=== PATIENT | male | born 1985 | race Caucasian/White ===

== ENCOUNTER 2018-09-21 21:04 | Emergency (ER) | payer BC ==
[~2018-09-21] VITALS: Ht 180.3 cm; Wt 96.2 kg
[2018-09-21 21:15] VITALS: BP 136/80
--- NOTE | 2018-09-21 21:18 | NUR ---
ARRIVAL PT ARRIVED AMBULATORY TO ER 3 WITH C/O LEFT FACIAL NUMBNESS AND HEADACHE. PT STATES THAT "ABOUT 4:30 TODAY WHEN I WAS BRUSHING MY TEETH I STARTED HAVING NUMBNESS FROM MY LEFT CHEEK UP TO MY LEFT EYE. THAT'S WHEN MY HEADACHE STARTED WELL. MY HEADACHE STARTS IN THE FRONT ON MY FOREHEAD AND GOES TO THE BACK OF MY HEAD." PT DOES NOT HAVE LIGHT SENSITIVITY, FACIAL DROOPING OR WEAKNESS. PT DENIES HAVING INJURED THE FACE/HEAD. PT STATES WAS DIAGNOSED WITH SINUS INFECTION A WEEK AGO MONDAY AND WAS ALSO TOLD HAD THE FLU BUT WAS NOT TESTED FOR IT. PT HAS BEEN ON AMOXICILLIN THE PAST WEEK FOR SINUS INFECTION. EDP NOTIFIED OF ARRIVAL. PT IN NO ACUTE DISTRESS.
--- NOTE | 2018-09-21 21:29 | ER.PDOC ---
General Chief Complaint: General Complaint Stated Complaint: L FACIAL NUMBNESS TRAVEL OUT OF US: No Time seen by MD: 21:28 Source: patient Exam Limitations: no limitations History of Present Illness Initial Comments Left facial numbness Timing/Duration: 4-6 hours Severity: moderate Associated Symptoms: denies symptoms Allergies: Coded Allergies: No Known Allergies (Unverified , 09/21/18) Past Medical History Medical History: GERD, high cholesterol, hypertension Surgical History: no surgical history Social History Smoking: cigarettes, less than 1 pack/day Alcohol Use: occassionally Drug Use: none Review of Systems Constitutional: no symptoms reported EENTM: no symptoms reported Respiratory: cough (for 1 week) Cardiovascular: no symptoms reported Gastrointestinal: no symptoms reported Psychiatric/Neurological: see HPI All Other Systems: Reviewed and Negative Physical Exam General Appearance: No Apparent Distress, WD/WN EENT: eyes nml inspection Neck: Non-Tender, Full Range of Motion, Supple, Normal Inspection Respiratory: chest non-tender, lungs clear, normal breath sounds, no respiratory distress CVS: reg rate & rhythm, no murmur, no gallop, pulses nml, nml capillary refill Gastrointestinal: Normal Bowel Sounds, No Organomegaly, No Pulsatile Mass, Non Tender Back: Normal Inspection Extremities: Normal Range of Motion 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, No Motor/Sensory Deficits, Alert, Normal Mood/Affect, Oriented x 3 Skin: Normal Color Results/Orders Results/Orders Laboratory Tests Test 09/21/18 21:34 White Blood Count 17.8 10^3/uL (4.5-11.0) Red Blood Count 4.75 10^6/uL (4.50-5.90) Hemoglobin 14.9 g/dL (13.9-16.3) Hematocrit 43.3 % (37.0-53.0) Mean Corpuscular Volume 91.2 fL (78-100) Mean Corpuscular Hemoglobin 31.4 pg (26-34) Mean Corpuscular Hemoglobin Concent 34.4 g/dL (33-37) Red Cell Distribution Width 12.7 % (11.5-14.5) Platelet Count 352 10^3/uL (150-400) Mean Platelet Volume 9.6 fL (7.8-11.0) Neutrophils (%) (Auto) 75.3 % (41.0-85.0) Lymphocytes (%) (Auto) 17.4 % (24.0-44.0) Monocytes (%) (Auto) 4.8 % (5.0-12.0) Neutrophils # (Auto) 13.4 10^3/uL (1.8-7.7) Lymphocytes # (Auto) 3.1 10^3/uL (1.0-4.8) Monocytes # (Auto) 0.9 10^3/uL (0.3-0.8) Absolute Immature Granulocyte (auto 0.06 10^3 u/L (0-2) Eosinophils % 2.0 % (0.0-5.0) Basophils % 0.2 % (0.0-0.2) Basophils # 0.0 10^3/uL (0.0-0.1) Eosinophil Count 0.4 10^3/uL (0.0-0.2) Sodium Level 136 mmol/L (132-145) Potassium Level 4.3 mmol/L (3.6-5.2) Chloride Level 98.0 mmol/L (96-109) Carbon Dioxide Level 26.5 mmol/L (20.0-32) Anion Gap 15.8 Blood Urea Nitrogen 20 mg/dL (7-18) Creatinine 1.28 mg/dL (0.59-1.40) Estimated GFR () 77.8 (>/=60) BUN/Creatinine Ratio 15.0 Glucose Level 117 mg/dL (70-110) Calcium Level 9.8 mg/dL (8.4-10.5) Total Bilirubin 0.4 mg/dL (0.2-1.0) Aspartate Amino Transf (AST/SGOT) 26 U/L (0-35) Alanine Aminotransferase (ALT/SGPT) 48 U/L (12-78) Alkaline Phosphatase 69 U/L (50-136) Total Protein 8.7 g/dL (6.4-8.2) Albumin 4.2 g/dL (3.4-5.0) Globulin 4.5 Percent Immature Gran (Cell Imm) 0.30 % (0.00-0.50) EKG/XRAY/CT/US CT Comments: Normal CT head Departure Time of Disposition: 22:05 Disposition: 01 HOME, SELF-CARE Impression: Primary Impression: Bronchitis Additional Impression: Numbness of face Condition: Stable Referrals: PCP,UNKNOWN (PCP) PRIMARY CARE PROVIDER Additional Instructions: Z pack Mucinex DM OTC as directed F/U with your PCP in 2-3 days Duration or Time Spent with Pa: 60 mins SAMIRA,RICKY Hart MD Sep 21, 2018 21:29
--- NOTE | 2018-09-21 21:30 | NUR ---
CT EVA, RAD IN PT ROOM TO ESCORT TO CT AT THIS TIME.
--- NOTE | 2018-09-21 21:30 | NUR ---
KAROLINE ALFONSO, KAROLINE IN PT ROOM FOR DRAWS AT THIS TIME.
[2018-09-21 21:37] LABS: BASOPHIL % 0.2 % (0.0-0.2); EOSINOPHIL # 0.4 10^3/uL (0.0-0.2); HEMOGLOBIN 14.9 g/dL (13.9-16.3); LYMPHOCYTES # 3.1 10^3/uL (1.0-4.8); LYMPHOCYTES % 17.4 % (24.0-44.0); MEAN CELL HGB 31.4 pg (26-34); MEAN CELL HGB CONCENTRATION 34.4 g/dL (33-37); MEAN CORP VOLUME 91.2 fL (78-100); MEAN PLATELET VOLUME 9.6 fL (7.8-11.0); MONOCYTES # 0.9 10^3/uL (0.3-0.8); MONOCYTES % 4.8 % (5.0-12.0); NEUTROPHIL # 13.4 10^3/uL (1.8-7.7); NEUTROPHILS % 75.3 % (41.0-85.0); RED CELL DISTRIBUTION WIDTH 12.7 % (11.5-14.5); WHITE BLOOD CELL 17.8 10^3/uL (4.5-11.0)
--- NOTE | 2018-09-21 21:38 | PCM.EKG ---
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
--- NOTE | 2018-09-21 21:41 | NUR ---
ROOM PT BACK TO ROOM FROM CT AT THIS TIME.
--- NOTE | 2018-09-21 21:46 | DIREP ---
PROCEDURE:CT HEAD OR BRAIN W/O CONTRAST COMPARISON:None. INDICATIONS:Left facial numbness TECHNIQUE:CT images were created without intravenous contrast. FINDINGS: VENTRICLES:The ventricles are normal in size and configuration. CEREBRUM:Normal cerebral morphology with appropriate bautista white matter differentiation. CEREBELLUM:Negative. BRAINSTEM:Negative. BASAL CISTERNS:Negative. HEMORRHAGE:No MASS LESION:No ACUTE INFARCT:No SKULL:Normal. SINUSES:Normal. OTHER:None CONCLUSION:Normal examination. Dictated by: Tesha Wood M.D. on 09/21/2018 at 09:43 PM
[2018-09-21 21:52] LABS: CALCIUM 9.8 mg/dL (8.4-10.5); CARBON DIOXIDE 26.5 mmol/L (20.0-32)
[2018-09-21] MEDS ORDERED: ROCEPHIN ONE (22:02)
[2018-09-21] MEDS ORDERED: ROCEPHIN IM IM STA (22:04)
[2018-09-21 22:30] VITALS: BP 136/80
== END 2018-09-21 22:27 | disposition home or self-care (01) ==
LOC: ER 21:04
DX: J40 Bronchitis, not specified as acute or chronic (principal); R20.0 Anesthesia of skin; F17.210 Nicotine dependence, cigarettes, uncomplicated; K21.9 Gastro-esophageal reflux disease without esophagitis; E78.00 Pure hypercholesterolemia, unspecified; I10 Essential (primary) hypertension
CPT/HCPCS: 36415; 70450; 80053; 85025; 93005; 96372; 99285; J0696